=== PATIENT | female | born 1990 | race Caucasian/White ===

== ENCOUNTER 2017-02-06 13:53 | Emergency (ER) | payer BC ==
[~2017-02-06] VITALS: Ht 162.6 cm; Wt 92.3 kg
[2017-02-06 14:49] LABS: EOSINOPHIL (%) 0.2 % (0-5); HEMATOCRIT 34.9 % (36.0-46.0); IMMATURE GRANULOCYTE (%) 0.8 % (0.0-0.7); IMMATURE GRANULOCYTE COUNT 0.1 K/uL; INSTRUMENT ABS NEUTROPHIL CT 10.9 K/uL; LYMPHOCYTE COUNT 1.4 K/uL (1.0-2.8); MCH 29.4 PG (29.0-34.0); MCHC 33.2 G/DL (30.0-36.0); MCV 88.6 FL (83-99); MEAN PLAT.VOLUME 10.4 uM^3 (9.5-12.4); MONOCYTE (%) 5.1 % (3-12); MONOCYTE COUNT 0.7 K/uL (0-0.8); NEUTROPHIL (%) 83.4 % (45-76); NEUTROPHIL COUNT 10.9 K/uL (1.8-6.4); PLATELET COUNT 211 K/uL (156-360); RBC DIS.WIDTH-CV 13.2 % (11.8-14.6); RED BLOOD COUNT 3.94 M/uL (3.80-5.20); WHITE BLOOD COUNT 13.1 K/uL (4.1-10.2)
[2017-02-06 14:58] LABS: CHLORIDE 106 mEq/L (99-109); POTASSIUM 3.5 mEq/L (3.7-5.4); SODIUM 135 mEq/L (136-147)
[2017-02-06 15:00] LABS: GLUCOSE 84 mg/dL (70-99)
[2017-02-06 15:01] LABS: ANION GAP 8 MEQ/L (2-14)
[2017-02-06 15:02] LABS: TOTAL BILIRUBIN 0.3 mg/dL (0.0-1.0)
[2017-02-06 15:03] LABS: ALKALINE PHOSPHATASE 85 IU/L (3-129)
[2017-02-06 15:04] LABS: GFR ESTIMATE (CALCULATED) > 59 mL/min/
[2017-02-06 15:05] LABS: UREA NITROGEN (BUN) 5 mg/dL (9-23)
[2017-02-06 15:22] LABS: ADD MIUA? YES; BILIRUBIN NEGATIVE; BLOOD NEGATIVE; COLOR YELLOW ((YELLOW)); GLUCOSE (STRIP) NEGATIVE; KETONES 5; LEUKOCYTES SMALL; NITRITE NEGATIVE; PROTEIN (STRIP) 30; SPECIFIC GRAVITY 1.018 (1.000-1.030); UROBILINOGEN 0.2 MG/DL (0.2-1.0)
[2017-02-06 15:54] LABS: RED BLOOD CELLS NONE SEEN /HPF (0-5)
[2017-02-06 15:55] LABS: EPITHELIAL CELLS 2+ /HPF; MUCUS NONE SEEN /LPF
[2017-02-06 15:56] LABS: BACTERIA 2+ /HPF; UCUL ADDED? YES
[2017-02-06 15:58] LABS: CASTS NONE SEEN /LPF; CRYSTALS NONE SEEN
[2017-02-06 16:21] LABS: INFLUENZA A VIRAL ANTIGEN NEGATIVE; INFLUENZA B VIRAL ANTIGEN NEGATIVE
[2017-02-06 17:00] VITALS: BP 98/55
== END 2017-02-06 17:00 | disposition home or self-care (01) ==
LOC: EME 13:53
PROVIDERS: Emergency Medicine
DX: O98.513 Other viral diseases complicating pregnancy, third trimester (principal); B34.9 Viral infection, unspecified; R53.81 Other malaise; R05 Cough; R06.02 Shortness of breath; M54.6 Pain in thoracic spine; R30.0 Dysuria; R51 Headache; O36.8130 Decreased fetal movements, third trimester, not applicable or unspecified; Z3A.28 28 weeks gestation of pregnancy
CPT/HCPCS: 80053; 81003; 83605; 85025; 87040; 87086; 87502; 99281; 99284; J7030